=== PATIENT | female | born 1950 ===

== ENCOUNTER 2020-04-09 12:49 | Observation (INO) ==
[~2020-04-09 12:49] MED LIST: Buffered Lidocaine 1% SYRIN 1 ml INTRADERM ONE; Famotidine IV 10 MG/ML 2 ml VIAL (20 mg) IV ONE; Lactated Ringers 1000 ml BAG 1,000 ML IV SCH
[2020-04-09] MEDS ORDERED: Famotidine IV 10 MG/ML 2 ml VIAL (20 mg) ONE (12:53)
[2020-04-09] MEDS ORDERED: ceFAZolin 2 GM PREMIX 2 GM/50 ML BAG ONE (12:53)
[2020-04-09] MEDS ORDERED: Midazolam 10 mg/10 ml VIAL 1 mg/ml 10 ml VIAL (10 mg) ONE (13:00)
[2020-04-09] MEDS ORDERED: Ondansetron 4 mg VIAL 2 MG/ML 2 ml VIAL ONE (13:00)
[2020-04-09] MEDS ORDERED: Propofol 10 MG/ML 20 ML BTL ONE ×2 (13:00→15:07)
[2020-04-09] MEDS ORDERED: Dexamethasone IV 4 MG/ML VIAL 1 ml VIAL ONE (13:00)
[2020-04-09] MEDS ORDERED: Lidocaine 2% PF 5 ML VIAL ONE (13:00)
[2020-04-09] MEDS ORDERED: fentaNYL 100 mcg/2 ml 50 MCG/ML VIAL ONE (13:00)
[2020-04-09] MEDS ORDERED: ROPIVACAINE 5 MG/ML 30 ML BTL (0.5%) ONE ×2 (13:00→14:37)
[2020-04-09] MEDS ORDERED: Ketamine HCL 50 mg/ml 10 ml VIAL (500 MG) ONE (13:00)
[2020-04-09] MEDS ORDERED: Bupivacaine 0.5% SDV PF 30ML VIAL ONE (14:45)
[2020-04-09] MEDS ORDERED: Phenylephrine 40 mcg/mL 10mL (400mcg) SYRINGE ONE (15:39)
[2020-04-09] MEDS ORDERED: Ondansetron 4 mg VIAL 2 MG/ML 2 ml VIAL IV PRN ×2 (16:01→16:17)
[2020-04-09] MEDS ORDERED: diPHENhydraMINE 25 mg TAB PO PRN (16:01)
[2020-04-09] MEDS ORDERED: diPHENhydraMINE IV 50 MG/ML 1 ml VIAL (BENADRYL) IV PRN (16:01)
[2020-04-09] MEDS ORDERED: Magnesium Hydroxide LIQ 30 ML UDC PO PRN (16:01)
[2020-04-09] MEDS ORDERED: oxyCODONE/Acetamin 5/325 mg TAB PO PRN ×2 (16:01)
[2020-04-09] MEDS ORDERED: Lactulose 30 ml UDC PO PRN (16:01)
[2020-04-09] MEDS ORDERED: Morphine 2 MG/ML SYRINGE IV PRN (16:01)
[2020-04-09] MEDS ORDERED: Ondansetron ODT 4 mg TAB 4 MG TAB PO PRN (16:01)
[2020-04-09] MEDS ORDERED: EPHEDrine (Pressors) 50 MG/ML VIAL ONE (16:07)
[2020-04-09] MEDS ORDERED: Naloxone 0.4 mg VIAL 0.4 mg/ml 1 ml VIAL IV PRN (16:17)
[2020-04-09] MEDS ORDERED: fentaNYL 100 mcg/2 ml 50 MCG/ML VIAL IV PRN (16:17)
[2020-04-09] MEDS ORDERED: Lactated Ringers 1000 ml BAG 1,000 ML IV SCH (17:00)
[2020-04-09] MEDS ORDERED: hydrALAZINE 20 mg/ml 1 ML Vial IV ONE (17:56)
[2020-04-09] MEDS ORDERED: hydrALAZINE 20 mg/ml 1 ML Vial IV IV SLOW PU ONE (18:47)
[2020-04-09] MEDS ORDERED: hydrALAZINE 20 mg/ml 1 ML Vial IV IV SLOW PU PRN (19:00)
[2020-04-09] MEDS: Magnesium Hydroxide LIQ 30 ML UDC PO SCH (22:11)
[2020-04-09] MEDS: ceFAZolin 1 GM ADVAN 1 GM in NS 0.9% 50 ML 50 ML IVPB SCH (23:39)
[2020-04-10] MEDS ORDERED: Polyethylene Glycol 3350 17 GM PACKET PO PRN (00:01)
[2020-04-10 04:53] LABS: Hematocrit 34 % (35-47); Hemoglobin 12.5 g/dL (12.0-16.0); Mean Platelet Volume 6.8 fL (7.4-10.4); Platelet Count 169 10^3/uL (150-450)
[2020-04-10 05:07] LABS: BUN/Creatinine Ratio 23.8 (8-20); Calcium 8.5 mg/dL (8.6-10.3); EGFR Non-African American 93.4 (>60); Potassium 4.2 mmol/L (3.5-5.0)
[2020-04-10] MEDS: ceFAZolin 1 GM ADVAN 1 GM in NS 0.9% 50 ML 50 ML IVPB SCH (07:25)
[2020-04-10] MEDS: Magnesium Hydroxide LIQ 30 ML UDC PO SCH (08:57)
[2020-04-10] MEDS ORDERED: Vitamin THERAPEUTIC TAB PO SCH (09:00)
[2020-04-10 11:21] VITALS: BP 123/70
== END 2020-04-10 14:45 | disposition home or self-care (01) ==
LOC: SSU 12:49 → OR 12:49
PROVIDERS: ADMIT Physician Assistant Surgical; ATTEND Orthopaedic Surgery Adult Reconstructive Orthopaedic Surgery